=== PATIENT | male | born 1940 | race Caucasian/White ===

== ENCOUNTER → 2018-11-17 12:15 | Outpatient (CLI) | payer MEDICARE, SELFPAY ==
[2013-09-11 10:27] VITALS: BMI 31.3
[2018-11-17 13:15] LABS: D-Dimer Quantitative (DVT/PE) 0.27 FEU/ug/m (0.27-0.49)
== END ==
DX: R06.00 Dyspnea, unspecified (principal); R06.89 Other abnormalities of breathing
CPT/HCPCS: 85379